=== PATIENT | female | born 1980 | race Caucasian/White ===

== ENCOUNTER 2016-11-25 09:44 | Emergency (ER) | payer MEDICAID ==
[~2016-11-25] VITALS: Ht 170.2 cm; Wt 95.9 kg
[2016-11-25 09:51] VITALS: BP 146/86; PULSE 80; TEMP 99
[2016-11-25] MEDS ORDERED: PROZAC40 MG PO (09:56)
[2016-11-25] MEDS ORDERED: DESYREL 100MG100 MG PO (09:56)
[2016-11-25] MEDS ORDERED: TOPAMAX 100MG100 M1 PO (09:57)
[2016-11-25] MEDS ORDERED: FLEXERIL 1010 MG/TAB PO (09:57)
[2016-11-25] MEDS ORDERED: NEURONTIN300 MG/CAP PO (09:57)
[2016-11-25] MEDS ORDERED: CEPHALEXIN500 M1 PO (10:24)
== END 2016-11-25 10:32 | disposition home or self-care (01) ==
LOC: COL.ER 09:44
DX: L08.89 Other specified local infections of the skin and subcutaneous tissue (principal)

== ENCOUNTER 2016-11-26 14:04 | Emergency (ER) | payer MEDICAID ==
[~2016-11-26] VITALS: Ht 170.2 cm; Wt 95.9 kg
[~2016-11-26 14:04] MED LIST: CEPHALEXIN500 M1 PO; DESYREL 100MG100 MG PO; FLEXERIL 1010 MG/TAB PO; NEURONTIN300 MG/CAP PO; PROZAC40 MG PO; TOPAMAX 100MG100 M1 PO
[2016-11-26 14:05] VITALS: BP 143/81; TEMP 98.9
[2016-11-26 15:13] VITALS: PULSE 91
== END 2016-11-26 15:27 | disposition home or self-care (01) ==
LOC: COL.ER 14:04
DX: L03.114 Cellulitis of left upper limb (principal); M25.512 Pain in left shoulder
CPT/HCPCS: J2360

== ENCOUNTER 2017-01-20 11:10 | Emergency (ER) | payer MEDICAID ==
[~2017-01-20] VITALS: Ht 170.2 cm; Wt 100.0 kg
[2017-01-20] MEDS ORDERED: ZYRTEC 10MG10 MG PO (11:17)
[2017-01-20] MEDS ORDERED: MOTRIN 800800 MG/TAB PO (11:17)
[2017-01-20] MEDS ORDERED: PROAIR HFA0.09 MG/AC IH (11:18)
[2017-01-20 12:56] VITALS: BP 127/93; PULSE 88; TEMP 98.6
== END 2017-01-20 12:56 | disposition home or self-care (01) ==
LOC: COL.ER 11:10
DX: M54.5 Low back pain (principal); G43.909 Migraine, unspecified, not intractable, without status migrainosus; F32.9 Major depressive disorder, single episode, unspecified; J45.909 Unspecified asthma, uncomplicated; F17.210 Nicotine dependence, cigarettes, uncomplicated; Z90.49 Acquired absence of other specified parts of digestive tract; Z98.890 Other specified postprocedural states; Z90.710 Acquired absence of both cervix and uterus
CPT/HCPCS: J1885; J3360